=== PATIENT | female | born 1980 | race Caucasian/White ===

== ENCOUNTER 2019-08-25 11:06 | Emergency (ER) | payer SELFPAY ==
[~2019-08-25 11:06] MED LIST: ACET-78 PO; ASPI325T32 PO; ATOR20TA66 PO
--- OUTSIDE RECORDS SUMMARY | 2019-08-25 11:10 | XMS REPORT ---
Author Author [employer] regional production manager [facility] Address [address] [address] Care Team Providers Care Rn Imcu Name Role Phone CHELA BEVERLY Unavailable Unavailable UNKNOWN Unavailable Unavailable LADY ORTIZ Unavailable Allergies No Information Medications No Information Problems No Information Procedures The data below is from unstructured sourcesNo known history of procedures. No Known procedures No Known procedures Immunizations The data below is from unstructured sources No Known Immunizations Results The data below is from unstructured sourcesNo Known Results No Results No Results Vital Signs The data below is from unstructured sources Vital Response Date/Time Temperature (Fahrenheit) 96.8 degree s F (97.6 - 99.5) 08/12/2015 5:16am Temperature (Calculated Celsius) 36. 62772 degrees C (36.4 - 37.5) 08/12/2015 5:16am Temperature Source Tympanic 08/12/2015 5:16am Pulse Rate (adult) 67 bpm (60 - 90) 08/12/2015 5:16am Respiratory Rate 16 bpm (12 - 24) 08/12/2015 5:16am O2 Sat by Pulse Oximetry 97 % (88 - 100) 08/12/2015 5:16am Blood Pressure 96/58 mm Hg 08/12/2015 5:16am Blood Pressure Mean 71 mm Hg 08/12/2015 5:16am Pain Pain Intensity 0 2015 8:00am Height (Feet) 5 feet 8:07pm Height (Inches) 3.00 inches 08/07/2015 8:07pm Height (Calculated Centimeters) 160. 396754 cm 08/07/2015 8:07pm Weight (Pounds) 261 pounds 08/07/2015 8:07pm Weight (Ounces) 0.0 oz 0 08/07/2015 8:07pm Weight (Calculated Grams) 011871.610 gm 08/07/2015 8:07pm Weight (Calculated Kilograms) 118.38 7610 kilograms 08/07/2015 8:07pm Calculated BMI 46.2 07/25 8:07pm Interventions No Information Plan of Treatment The data below is from unstructured sources Discharge Date 08/12/15 9:00am Disposition 07 AGAINST MEDICAL ADVIC E Forms Provided Rehab Team Conference Summary Prescriptions See Medication Section Care Plan and Goals Activity Details Follow Up 3 Months Reason: Activity Details Follow Up 3 Months Reason: Goals No Information Social History No Information Functional Status The data below is from unstructured sources Query Response Date Jose Carlos rded Patient Orientation Normal For Age August 11, 2015 2:00pm Patient Orientation Person Place Time Situation Normal For Age August 13, 2015 12:49am Comprehension Ability Understands Co ncepts August 12, 2015 8:30am Mental Status No Information Encounters Encounter Normalized Encounter Encounter Diagnosis Care Provi flor Organization Date Type 06-06-2017 Patient encounter no information no name no or ganization name Medical Equipment No Information Payers No Information Summary Purpose eClinicalWorks Submission Advance Directives Directive Response Recor ded Date/Time Advance Directives No 10:36pm Health Care Power of Community Marketing Coordinator No 08/07/15 10:36pm Organ Donor Yes 08/07/15 10:36pm Resuscitation Status Full Code 08/07/15 10:36pm Discharge Instructions No hospital discharge instructions. Additional Source Comments This clinical document has been generated using [employer] software that has been certified by the Office of the National Coordinator for Health Information Technology (ONC 15.99.04.3023.Diam.[id number]) and the National Committee for Solar Project Manager (NCQA, as an eMeasure certified technology). FOR RECORDS PERTAINING TO PATIENTS WHO ARE OR HAVE BEEN ENROLLED IN A CHEMICAL D EPENDENCY/SUBSTANCE ABUSE PROGRAM, SOME INFORMATION MAY BE OMITTED. This clinica l summary was aggregated from multiple sources. Caution should be exercised in using it in the provision of clinical care. This summary normalizes information from multiple sources, and as a consequence, information in this document may ma terially change the coding, format and clinical context of patient data. In yue tion, data may be omitted in some cases. CLINICAL DECISIONS SHOULD BE BASED ON T HE PRIMARY CLINICAL RECORDS. [employer] provides no warranty or guara ntee of the accuracy or completeness of information in this document.The followi ng information is based on time limited clinical information UNRECOGNIZED CONTENT PROVIDED BELOW FOR UNRECOGNIZED SECTION MEDICAL (GENERAL) HISTORY Type Description Date Medical History Stroke-July2015/October2015 Surgical History appendix removal Surgical History gallbladder removal Surgical History plates/screws in right ar m Surgical History 2 cesareans Surgical History hysterectomy
--- OUTSIDE RECORDS SUMMARY | 2019-08-25 11:10 | XMS REPORT ---
Author Kaylee Cooley [facility] eClinicalWorks Address Unknown Phone Unavailable Care Team Providers Care Lvn Lpn Name Role Phone CHELA BEVERLY CP Unavailable Allergies, Adverse Reactions, Alerts Substance Reaction Event Type morphine Info Not Available Non Drug Allergy toradol Info Not Available Non Drug Allergy Problems Problem Type Condition Code Onset Dates Condition Statu s Assessment Dental examination Z01.20 Active Medications Medication Code System Code Instructions Start Date End Date Status Dosage Tramadol HCl [facility] 0 not defined Muddy [facility] [address]-65 5-325 MG Orally every 6 hrs Dec 15, 2015 Dec 19, 2015 1 tablet as needed Estradiol [facility] [address]-80 not defi sera Amoxicillin [facility] [address]-90 not de fined Amoxicillin [facility] [address]-13 500 MG Orally 4 times a day Dec 15, 2015 Dec 22, 2015 1 capsule Hydrochlorothiazide [facility] [address]-74 not defined Procedures Procedure Coding System Code Date INTRAORL-PERIAPICAL 1 FILM 37742 CPT-4 D0220 Dec 15, 2015 LTD ORAL EVALUATION - PROBLEM FOCUS CPT-4 D0140 Dec 15, 2015 Vital Signs Date/Time: Dec 15, 2015 Blood Pressure Diastolic 80 mmHg Blood Pressure Systolic 149 mmHg Results No Known Results Summary Purpose eClinicalWorks Submission
--- OUTSIDE RECORDS SUMMARY | 2019-08-25 11:10 | XMS REPORT ---
Author Author Kaylee MEEKS Organization [facility] Address Unknown Care Team Providers Care Chairman Emeritus Name Role Phone RAMON MEEKS Unavailable PROBLEMS Type Condition ICD9-CM Code IYV32-VP Code Onset Dates Condition S tatus SNOMED Code Problem Essential hypertension I10 Active 54600857 Problem History of CVA (cerebrovascular accident) Z86.73 Active 409275778 Problem Cigarette nicotine dependence without complication F17.210 Active 61522350 ALLERGIES No Information ENCOUNTERS Encounter Location Date Diagnosis [place] [address] [address] [facility] [id number] [address] [place] [phone] May, History of CVA (cerebrovascu lar accident) Z86.73 ; Essential hypertension I10 ; Cigarette nicotine dependence without complication F17.210 and BMI 50.0-59.9, adult Z68.43 [facility] [address] [id number] [address] [place] [phone] 13 Sep, 2016 Dental examination Z01.20 [facility] [address] [place] [id number] [address] [place] [phone] Sep, [facility] [address] [place] [phone] Nov, Dental examination Z01.20 [facility] [address] [place] [id number] [address] [place] [phone] Aug, IMMUNIZATIONS No Known Immunizations SOCIAL HISTORY Never Assessed REASON FOR VISIT requesting referral PLAN OF CARE VITAL SIGNS MEDICATIONS No Known Medications RESULTS No Results PROCEDURES No Known procedures INSTRUCTIONS MEDICATIONS ADMINISTERED No Known Medications MEDICAL (GENERAL) HISTORY Type Description Date Medical History Stroke-July2015/October2015 Surgical History appendix removal Surgical History gallbladder removal Surgical History plates/screws in right arm Surgical History 2 cesareans Surgical History hysterectomy
--- OUTSIDE RECORDS SUMMARY | 2019-08-25 11:10 | XMS REPORT ---
Author Author Kaylee ORTIZ Organization [facility] Address [address] [place] [address] Care Team Providers Care Bag Machine Tender Name Role Phone LADY ORTIZ Unavailable PROBLEMS Type Condition ICD9-CM Code [id number] Code Onset Dates Condition S tatus SNOMED Code Problem Essential hypertension I10 Active 89778932 Problem BMI 45.0-49.9, adult Z68.42 Active 373313802 Problem Cigarette nicotine dependence without complication F17.210 Active 51060302 Problem History of CVA (cerebrovascular accident) Z86.73 Active 652076582 ALLERGIES No Information ENCOUNTERS Encounter Location Date Diagnosis [id number] [place] [phone] 27 Jun, 2019 Knee pain, left M25.562 ; Hi story of CVA (cerebrovascular accident) Z86.73 ; Headache R51 ; BMI 45.0-49.9, adult Z68.42 ; Essential hypertension I10 and Cigarette nicotine dependence without complica tion F17.210 [facility] [address] [facility] [id number] [address] [place] [phone] May, History of CVA (cerebrovascu lar accident) Z86.73 ; Essential hypertension I10 ; Cigarette nicotine dependence without complication F17.210 and BMI 50.0-59.9, adult Z68.43 [facility] [address] [id number] [address] [place] [phone] Sep, Dental examination Z01.20 [facility] [address] [facility] [id number] [address] [place] [phone] 03 Sep, 2016 [facility] [address] [facility] [id number] [address] [place] [phone] Nov, Dental examination Z01.20 [facility] [address] [facility] [id number] [address] [place] [address] Aug, IMMUNIZATIONS No Known Immunizations SOCIAL HISTORY Never Assessed REASON FOR VISIT PLAN OF CARE VITAL SIGNS MEDICATIONS No Known Medications RESULTS No Results PROCEDURES No Known procedures INSTRUCTIONS MEDICATIONS ADMINISTERED No Known Medications MEDICAL (GENERAL) HISTORY Type Description Date Medical History Stroke-July2015/October2015 Medical History Seizures Surgical History appendix removal Surgical History gallbladder removal Surgical History plates/screws in right arm Surgical History 2 cesareans Surgical History hysterectomy
--- OUTSIDE RECORDS SUMMARY | 2019-08-25 11:10 | XMS REPORT | Continuity of Care Document ---
Author Organization Unknown Address Unknown Phone Unavailable Allergies Active Description Code Type Severity Reaction Onset Reported/Identified Relationship to Patient Clinical Status Yes ketorolac [id number] Drug Allergy Severe HIVES 08/07/2015 Yes morphine [id number] Drug Allergy Moderate NAUSEA 08/07/2015 Medications There is no data. 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 Results There is no data. Encounters ACCT No. Visit Date/Time Discharge Status Pt. Type Provider Facility Loc./Unit Complaint [id number] 06/06/2017 16:40:00 06/06/2017 23:59:5 9 CLS Outpatient RAMESH GREY LAC [facility] [id number] 08/07/2015 18:50:00 016 09:00:00 DIS Inpatient BEBETO PEÑALOZA MD Via [facility] IRF
--- OUTSIDE RECORDS SUMMARY | 2019-08-25 11:10 | XMS REPORT ---
Author Author Kaylee MEEKS Organization [facility] Address Unknown Care Team Providers Care Sterile Tech Name Role Phone RAMON MEEKS Unavailable PROBLEMS Type Condition ICD9-CM Code [id number] Code Onset Dates Condition S tatus SNOMED Code Problem Essential hypertension I10 Active 52105425 Problem History of CVA (cerebrovascular accident) Z86.73 Active 598278348 Problem Cigarette nicotine dependence without complication F17.210 Active 16134325 ALLERGIES Substance Reaction Event Type Date Status morphine Unknown Non Drug Allergy Sep, Active toradol Unknown Non Drug Allergy Sep, Active ENCOUNTERS Encounter Location Date Diagnosis [place] [address] [address] [place] [id number] [place] [phone] May, History of CVA (cerebrovascu lar accident) Z86.73 ; Essential hypertension I10 ; Cigarette nicotine dependence without complication F17.210 and BMI 50.0-59.9, adult Z68.43 [facility] [address] [facility] [id number] [address] [place] [phone] Sep, Dental examination Z01.20 [facility] [address] [facility] [id number] [address] [place] [phone] Sep, [facility] [address] [place] [id number] [address] [place] [phone] Nov, Dental examination Z01.20 [facility] [address] [place] [id number] [address] [place] [phone] Aug, IMMUNIZATIONS No Known Immunizations SOCIAL HISTORY Never Assessed REASON FOR VISIT pain PLAN OF CARE Activity Details Follow Up prn Reason:referral VITAL SIGNS Blood pressure systolic 128 mmHg 2016-10-06 Blood pressure diastolic 81 mmHg 2016-10-06 MEDICATIONS Medication Instructions Dosage Frequency Start Date End Date Duration S tatus Clindamycin HCl 150 MG Orally every 6 hrs 2 capsules 6h 7 days Active Estradiol Active Hydrochlorothiazide Acti ve Plavix Active Tramadol HCl Active Aspir-81 Active RESULTS No Results PROCEDURES Procedure Date Ordered Result Body Site LTD ORAL EVALUATION - PROBLEM FOCUS October 06, 2016 INTRAORL-PERIAPICAL 1 FILM 16801 October 06, 2016 BITEWING - SINGLE FILM October 06, 2016 INSTRUCTIONS MEDICATIONS ADMINISTERED No Known Medications MEDICAL (GENERAL) HISTORY Type Description Date Medical History Stroke-July2015/October2015 Surgical History appendix removal Surgical History gallbladder removal Surgical History plates/screws in right arm Surgical History 2 cesareans Surgical History hysterectomy
--- OUTSIDE RECORDS SUMMARY | 2019-08-25 11:10 | XMS REPORT ---
Author Author Kaylee ORTIZ Organization [facility] Address [address] [place] [address] Care Team Providers Care Sales And Business Development Manager Name Role Phone LADY ORTIZ Unavailable PROBLEMS Type Condition ICD9-CM Code COI84-IC Code Onset Dates Condition S tatus SNOMED Code Problem Essential hypertension I10 Active 74117704 Problem History of CVA (cerebrovascular accident) Z86.73 Active 577424414 Problem Cigarette nicotine dependence without complication F17.210 Active 85284231 ALLERGIES Substance Reaction Event Type Date Status morphine Unknown Non Drug Allergy May, Active toradol Unknown Non Drug Allergy May, Active ENCOUNTERS Encounter Location Date Diagnosis [place] [id number] [facility] [id number] [address] [place] [phone] May, History of CVA (cerebrovascu lar accident) Z86.73 ; Essential hypertension I10 ; Cigarette nicotine dependence without complication F17.210 and BMI 50.0-59.9, adult Z68.43 [facility] [address] [facility] [id number] [address] [place] [phone] Sep, Dental examination Z01.20 [facility] [address] [place] [id number] [address] [place] [phone] Sep, [facility] [address] [place] [id number] [address] [place] [phone] Nov, Dental examination Z01.20 [facility] [address] [place] [id number] [address] [place] [phone] Aug, IMMUNIZATIONS No Known Immunizations SOCIAL HISTORY Never Assessed REASON FOR VISIT Headache, States she needs all her meds back- Wilman Juarez RN PLAN OF CARE Activity Details Follow Up 3 Months Reason: VITAL SIGNS Height 63 in 2017-06-06 Weight 296 lbs 2017-06-06 Temperature 98.2 degrees Fahrenheit 2017-06-06 Heart Rate 80 bpm 2017-06-06 Respiratory Rate 18 2017-06-06 BMI 52.43 kg/m2 2017-06-06 Blood pressure systolic 132 mmHg 2017-06-06 Blood pressure diastolic 80 mmHg 2017-06-06 MEDICATIONS Medication Instructions Dosage Frequency Start Date End Date Duration S julieta Aspir-81 81 MG Orally Once a day 1 tablet 24h Active Hydrochlorothiazide 12.5 MG Orally Once a day 1 tablet 24h Active RESULTS No Results PROCEDURES No Known procedures INSTRUCTIONS MEDICATIONS ADMINISTERED No Known Medications MEDICAL (GENERAL) HISTORY Type Description Date Medical History Stroke-July2015/October2015 Surgical History appendix removal Surgical History gallbladder removal Surgical History plates/screws in right arm Surgical History 2 cesareans Surgical History hysterectomy
--- NOTE | 2019-08-25 11:30 | ED Neurological Problem ---
General Chief Complaint: Neuro-Stroke Like Symptoms Stated Complaint: THINKS SHES HAVING A STROKE Source: patient, spouse Exam Limitations: clinical condition (difficulty speaking and left sided weakness) History of Present Illness Date Seen by Provider: August 25, 2019 Time Seen by Provider: 11:08 Initial Comments 39-year-old female presenting with her significant other having complaints of new onset left-sided weakness and difficulty speaking. He significant other said that she was slightly better now or ago when he woke up. He stated that he had not seen her since last night when they went to bed. At that time she was normal but has this new onset of weakness and difficulty speaking. She has had a prior stroke but had no residual deficit from it. He had stated that she was having difficulty with her blood pressure in the last several days. She also had a knot on the back of her scalp on the left side but it seems to be gone today. She has not had any fever or chills. She has not been coughing or been sick. Allergies and Home Medications Allergies Coded Allergies: ketorolac (Verified Allergy, Severe, HIVES, 08/07/15) morphine (Verified Adverse Reaction, Intermediate, NAUSEA, 08/07/15) Home Medications Acetaminophen 500 Mg Tablet, 1,000 MG PO Q6H PRN for MILD PAIN Prescribed by: BEBETO PEÑALOZA on 08/12/15 1102 Aspirin 325 Mg Tablet.dr, 325 MG PO DAILY Prescribed by: BEBETO PEÑALOZA on 08/12/15 110 Atorvastatin Calcium 20 Mg Tablet, 40 MG PO HS Prescribed by: BEBETO PEÑALOZA on 08/12/15 1102 Patient Home Medication List Home Medication List Reviewed: Yes Review of Systems Review of Systems Constitutional: No chills, No fever Eyes: Blurred Vision Ears, Nose, Mouth, Throat: no symptoms reported Respiratory: no symptoms reported Cardiovascular: no symptoms reported Gastrointestinal: no symptoms reported Genitourinary: no symptoms reported Musculoskeletal: see HPI, muscle weakness (left-sided weakness) Skin: no symptoms reported Psychiatric/Neurological: Headache, Unable to Move Lower Ext (on the left), Unable to Move Upper Ext (on the left), Weakness (left sided weakness), Other (and speech difficulty) Past Ucxdlog-Rsaxpq-Pqnyov Hx Past Med/Social Hx: Reviewed Nursing Past Med/Soc Hx Immunizations Up To Date Tetanus Booster (TDap): Unknown Date of Influenza Vaccine: Feb 07, 2015 Past Medical History Cardiac: Yes High Cholesterol, Hypertension Neurological: Yes Stroke (prior stroke. No residual deficits per the ) Reproductive Disorders: No Bipolar, Depression Family Medical History Alcoholism 19 FATHER 19 MOTHER Alzheimer's disease 19 FATHER Arthritis 19 FATHER 19 MOTHER Cardiovascular disease 19 MOTHER Physical Exam Vital Signs Vital Signs - First Documented 08/25/19 11:24 Pulse 86 Resp 21 B/P (MAP) 112/50 (70) Pulse Ox 97 Capillary Refill : Height, Weight, BMI Height: 5'3.00" Weight: 261lbs. 0.0oz. 118.954431vu; 46.2 BMI Method: General Appearance: WD/WN, mild distress, obese HEENT: PERRL/EOMI, pharynx normal Neck: non-tender, full range of motion, supple Respiratory: chest non-tender, lungs clear, normal breath sounds, no respiratory distress, no accessory muscle use Cardiovascular: normal peripheral pulses, regular rate, rhythm, no murmur Gastrointestinal: normal bowel sounds, non tender, soft, no pulsatile mass Extremities: non-tender, normal capillary refill Neurologic/Psychiatric: alert, motor weakness (left-sided) Crainal Nerves: abnormal speech (dysarthria and expressive aphasia) Motor/Sensory: weak motor strength LUE, weak motor strength LLE Skin: normal color, warm/dry Stroke Onset of Symptoms Symptoms onset unknown: Yes NIH Stroke Scale Assessment Select: Initial Level of Consciousness: 0=Alert (0), Level of Consciousness- Questions: 1=Answers one question (1), LOC Commands: 0=Performs both tasks (0), Gaze: Normal (0), Visual Conley: 0=No visual loss (0), Facial Movement (Facial Paresis): 1=Minor paralysis (1), Motor Function-Arms Right: 0=No drift (0), Motor Function-Arms Left: 4=No movement (4), Motor Function-Legs Right: 1=Drift (1), Motor Function-Legs Left: 3=No effort/gravity (3), Limb Ataxia: 0=Absent (0), Sensory: 2=Severe to total loss (2), Best Language: 2=Severe aphasia (2), Dysarthria: 2=Severe dysarthria (2), Extinction & Inattention: 2=ProfoundHemiInattention (2), Total: 18 Stroke Thrombolytic Exclusion Age 18 or Over: Yes Acute intenal hemorrhage: No History of CVA: Yes Uncontrolled Coagulation Defec: No Intracranial Hemorrhage: No Severe Hypertension: No GI or Bleed: No Subarachnoid Hemorrhage: No Intracranial Neoplasm/Aneurysm: No Oral Anticoagulants: No Surgery or Trauma: No Puncture of Non-Compressible V: No Recent CPR: No Diabetic Hemorrhagic Retinopat: No Organ Biopsy: No Recent Obstetric Delivery: No Glucose: No Significant Hepatic Dysfunctio: No Bacterial Endocarditis: No Pericarditis: No Improving Symptoms: No Platelets: No Progress/Results/Core Measures Results/Orders Lab Results Laboratory Tests Test 08/25/19 11:15 08/25/19 11:42 08/25/19 12:05 Range/Units White Blood Count 9.9 4.3-11.0 10^3/uL Red Blood Count 4.62 4.35-5.85 10^6/uL Hemoglobin 13.9 11.5-16.0 G/DL Hematocrit 41 35-52 % Mean Corpuscular Volume 90 80-99 FL Mean Corpuscular Hemoglobin 30 25-34 PG Mean Corpuscular Hemoglobin Concent 34 32-36 G/DL Red Cell Distribution Width 13.9 10.0-14.5 % Platelet Count 390 130-400 10^3/uL Mean Platelet Volume 9.8 7.4-10.4 FL Neutrophils (%) (Auto) 62 42-75 % Lymphocytes (%) (Auto) 28 12-44 % Monocytes (%) (Auto) 6 0-12 % Eosinophils (%) (Auto) 3 0-10 % Basophils (%) (Auto) 1 0-10 % Neutrophils # (Auto) 6.1 1.8-7.8 X 10^3 Lymphocytes # (Auto) 2.8 1.0-4.0 X 10^3 Monocytes # (Auto) 0.6 0.0-1.0 X 10^3 Eosinophils # (Auto) 0.3 0.0-0.3 10^3/uL Basophils # (Auto) 0.1 0.0-0.1 10^3/uL Prothrombin Time 11.8 L 12.2-14.7 SEC INR Comment 0.8 0.8-1.4 Activated Partial Thromboplast Time 27 24-35 SEC D-Dimer 1.02 H 0.00-0.49 UG/ML Sodium Level 145 135-145 MMOL/L Potassium Level 4.2 3.6-5.0 MMOL/L Chloride Level 106 98-107 MMOL/L Carbon Dioxide Level 27 21-32 MMOL/L Anion Gap 12 5-14 MMOL/L Blood Urea Nitrogen 12 7-18 MG/DL Creatinine 0.69 0.60-1.30 MG/DL Estimat Glomerular Filtration Rate > 60 BUN/Creatinine Ratio 17 Glucose Level 102 70-105 MG/DL Calcium Level 9.2 8.5-10.1 MG/DL Corrected Calcium 9.2 8.5-10.1 MG/DL Total Bilirubin 0.4 0.1-1.0 MG/DL Aspartate Amino Transf (AST/SGOT) 16 5-34 U/L Alanine Aminotransferase (ALT/SGPT) 18 0-55 U/L Alkaline Phosphatase 104 40-136 U/L Troponin I < 0.30 <0.30 NG/ML Total Protein 6.5 6.4-8.2 GM/DL Albumin 4.0 3.2-4.5 GM/DL Serum Test, Qualitative NEGATIVE NEGATIVE Glucometer 103 70-110 MG/DL Urine Color YELLOW Urine Clarity CLEAR Urine pH 6.0 5-9 Urine Specific Pierpont 1.025 H 1.016-1.022 Urine Protein NEGATIVE NEGATIVE Urine Glucose (UA) NEGATIVE NEGATIVE Urine Ketones TRACE H NEGATIVE Urine Nitrite NEGATIVE NEGATIVE Urine Bilirubin NEGATIVE NEGATIVE Urine Urobilinogen 2.0 < = 1.0 MG/DL Urine Leukocyte Esterase NEGATIVE NEGATIVE Urine RBC (Auto) NEGATIVE NEGATIVE Urine RBC NONE /HPF Urine WBC NONE /HPF Urine Squamous Epithelial Cells 0-2 /HPF Urine Crystals NONE /LPF Urine Bacteria TRACE /HPF Urine Casts NONE /LPF Urine Mucus MODERATE H /LPF Urine Culture Indicated NO My Orders Orders - GERI CARNEY MD Ct Head Wo-R/O Stroke (08/25/19 11:16) Cbc With Automated Diff (08/25/19 11:23) Protime With Inr (08/25/19 11:23) Partial Thromboplastin Time (08/25/19 11:23) Comprehensive Metabolic Panel (08/25/19 11:23) Fibrin Degradation Products (08/25/19 11:23) Troponin I Fs (08/25/19 11:23) Hcg,Qualitative Serum (08/25/19 11:23) Ua Culture If Indicated (08/25/19 11:23) Chest 1 View Ap/Pa Only (08/25/19 11:23) Catheter(Urinary) Insert & Ass 03,15 (08/25/19 11:23) Ekg Tracing (08/25/19 11:23) Nothing By Mouth (08/25/19 Dinner) Accucheck Stat ONCE (08/25/19 11:23) Ed Iv/Invasive Line Start (08/25/19 11:23) Ed Iv/Invasive Line Start (08/25/19 11:23) Vital Signs Stroke Patient Q15M (08/25/19 11:23) O2 (08/25/19 11:23) Intake & Output 06,14,22 (08/25/19 11:23) Monitor-Rhythm Ecg Trace Only (08/25/19 11:23) Dysphagia Screening Tool (08/25/19 11:23) Ct Angio Head/Neck (08/25/19 12:07) Iohexol Injection (Omnipaque 350 Mg/Ml 1 (08/25/19 12:15) Received Contrast (Hold Metformin- Contr (08/25/19 12:15) Sodium Chloride Flush (Catheter Flush Sy (08/25/19 12:15) Ns (Ivpb) (Sodium Chloride 0.9% Ivpb Bag (08/25/19 12:15) Medications Given in ED Current Medications Medications Dose Ordered Sig/Cece Route Start Time Stop Time Status Last Admin Dose Admin Iohexol 75 ml ONCE ONCE IV 08/25/19 12:15 08/25/19 12:16 DC 08/25/19 12:42 75 ML Sodium Chloride 10 ml NEEDED PRN IV 08/25/19 12:15 08/25/19 12:42 10 ML Sodium Chloride 100 ml ONCE ONCE IV 08/25/19 12:15 08/25/19 12:16 DC 08/25/19 12:42 100 ML Vital Signs/I&O 08/25/19 08/25/19 11:24 12:30 Pulse 86 80 Resp 21 19 B/P (MAP) 112/50 (70) 124/69 Pulse Ox 97 96 Progress Progress Note #1: Progress Note Obtain labs and electrocardiogram. Send patient over to CT for CAT scan without contrast to evaluate for stroke. Timing of the onset of symptoms was difficult to pin down. Patient was reporting that this happened during her shower this morning. The states that he got up an hour ago when she was having symptoms but the patient said her symptoms started 20 minutes before coming to the emergency department. The timing is not matching so unable to give specific onset of symptoms time. Progress Note #2: Time: 11:44 Progress Note No acute bleeding or mass seen on CT head. Will contact about speaking with the neurologist and transfer. Labs appear stable without acute significant abnormality on CBC or chemistry. Her cardiac enzymes are normal. Glucose was normal. 1152 call placed to the transfer line and spoke with GEGE Vásquez. He put me in touch with Dr. Obdulia Lewis and she accepted the patient in transfer. She did request CTA to be performed as long as it did not placed transfer the patient. If the timing of the onset of symptoms can be patent down but then the last 4-1/2 hours then she would like to have TPA started as well. After speaking with the patient she was unable to give me a specific time of when she woke up. She did state that she was dropping things and was off balance when she woke up. Based on this I did not feel comfortable saying that her symptoms started in the last 4.5 hours. Will hold off on TPA. The CTA is been performed prior to transfer. The helicopter is to arrive at approximately 12:31 PM. Progress Note #3: Time: 13:01 Progress Note Patient left with helicopter ambulance to transport to [facility]. The CT was performed prior to transfer but results are still pending. Initial ECG Impression Date: August 25, 2019 Initial ECG Impression Time: 11:14 Initial ECG Rate: 84 Initial ECG Rhythm: Normal Sinus Initial ECG Intervals: Normal Initial ECG Comparisson: No Previous ECG Available Comment Normal sinus rhythm with heart rate of 84 bpm. IN interval 169 ms. QT interval 382 ms QTc interval 452 ms. There is no acute ST elevation. There is no prior tracing available for comparison. Diagnostic Imaging Diagonstic Imaging: CT Plain Films/CT/US/NM/MRI: head Comments NAME: ALEXSANDER TOBIN MED REC#: [id number] PT STATUS: REG ER : 1980 PHYSICIAN: GERI CARNEY MD ADMIT DATE: 08/25/19/ER FS Draft Date of Exam:08/25/19 CT HEAD WO-R/O STROKE PROCEDURE: CT head wo r/o stroke. TECHNIQUE: Multiple contiguous axial images were obtained through the brain without the use of intravenous contrast. Auto Exposure Controls were utilized during the CT exam to meet ALARA standards for radiation dose reduction. INDICATION: Stroke, left-sided weakness COMPARISON: None available FINDINGS: No intracranial hemorrhage. No intracranial mass, mass effect, midline shift, herniation, hydrocephalus, or extra-axial fluid collection. No CT evidence of an acute ischemic infarction. The orbits are unremarkable. The paranasal sinuses are clear. The calvarium is intact. IMPRESSION: No acute intracranial abnormality. If there remains clinical concern for underlying recent infarction, then further evaluation with MRI of the brain would be recommended. Dictated on workstation # [id number] Dict: 08/25/19 1134 Trans: 08/25/19 1139 GLENNA [id number] Interpreted by: RAFAEL BANKS MD Electronically signed by: Diagonstic Imaging: Xray Plain Films/CT/US/NM/MRI: chest Comments NAME: ALEXSANDER TOBIN [facility] REC#: [id number] PT STATUS: REG ER : 1980 PHYSICIAN: GERI CARNEY MD ADMIT DATE: 08/25/19/ER FS Draft Date of Exam:08/25/19 CHEST 1 VIEW AP/PA ONLY INDICATION: Left-sided weakness, slurred speech COMPARISON: None available TECHNIQUE: Single radiograph of the chest dated 08/25/2019. FINDINGS: The cardiac silhouette and pulmonary vasculature within normal limits. The lungs are clear. No pleural effusion. No pneumothorax. No acute osseous abnormality. IMPRESSION: No acute cardiopulmonary abnormality. Dictated on workstation # [id number] Dict: 08/25/19 1204 Trans: 08/25/19 1216 GLENNA [id number] Interpreted by: RAFAEL BANKS MD Electronically signed by: Critical Care Note Critical Care Total Time (minutes) 45 Progress 45 minutes of critical care time was spent with the patient. This time was spent in direct care of the patient obtaining history from the patient and family, reviewing medical records, ordering tests and reviewing results, discussion with consultants and family, documentation of the chart. Patient was at risk of having complications or deterioration of her neurologic system. Departure Impression Primary Impression: Stroke determined by clinical assessment Additional Impressions: Left-sided muscle weakness Dysarthria due to acute stroke Aphasia complicating stroke Disposition: 02 XFER SHT-TRM HOSP Condition: Critical Transfer Transfer Reason: Exceeds level of care Time Spoke to Accepting Phy: 11:56 Transfer Progress Notes Called Transfer line at 1152 am and spoke with GEGE Vásquez. He got me in touch with Dr. Obdulia Lewis from Neurology and she accepted the pt in transfer. She did request a CTA to be done if possible as long as it does not delay transport. tPA to be ordered if can confidently pin the time down to the last 4.5 hours. 1204 D/w patient further and she was having trouble with her gait and was dropping things when she woke up this am. She can not tell me what time she woke up. Based on this I can not pin her symptoms down to a start time in the last 4.5 hours with a reliable certainty. Will obtain CTA imaging and cloud those images to while she is in route by helicopter. Transfer Facility: [facility] Method of Transfer: Air Departure-Patient Inst. Referrals: NICOLE FORBES MD (PCP/Family) Primary Care Physician GERI CARNEY MD August 25, 2019 11:30
[2019-08-25 11:38] LABS: BASOPHILS # (AUTO) 0.1 10^3/uL (0.0-0.1); BASOPHILS % (AUTO) 1 % (0-10); EOSINOPHILS # (AUTO) 0.3 10^3/uL (0.0-0.3); EOSINOPHILS % (AUTO) 3 % (0-10); HEMATOCRIT 41 % (35-52); HEMOGLOBIN 13.9 G/DL (11.5-16.0); LYMPHOCYTES # (AUTO) 2.8 X 10^3 (1.0-4.0); LYMPHOCYTES % (AUTO) 28 % (12-44); MEAN CORPUSCULAR HEMOGLOBIN 30 PG (25-34); MEAN CORPUSCULAR HGB CONC 34 G/DL (32-36); MEAN CORPUSCULAR VOLUME 90 FL (80-99); MEAN PLATELET VOLUME 9.8 FL (7.4-10.4); MONOCYTES # (AUTO) 0.6 X 10^3 (0.0-1.0); MONOCYTES % (AUTO) 6 % (0-12); NEUTROPHILS # (AUTO) 6.1 X 10^3 (1.8-7.8); NEUTROPHILS % (AUTO) 62 % (42-75); PLATELET COUNT 390 10^3/uL (130-400); RED CELL DISTRIBUTION WIDTH 13.9 % (10.0-14.5); WHITE BLOOD COUNT 9.9 10^3/uL (4.3-11.0)
--- NOTE | 2019-08-25 11:39 | Diagnostic Imaging Report ---
PROCEDURE: CT head wo r/o stroke. TECHNIQUE: Multiple contiguous axial images were obtained through the brain without the use of intravenous contrast. Auto Exposure Controls were utilized during the CT exam to meet ALARA standards for radiation dose reduction. INDICATION: Stroke, left-sided weakness COMPARISON: None available FINDINGS: No intracranial hemorrhage. No intracranial mass, mass effect, midline shift, herniation, hydrocephalus, or extra-axial fluid collection. No CT evidence of an acute ischemic infarction. The orbits are unremarkable. The paranasal sinuses are clear. The calvarium is intact. IMPRESSION: No acute intracranial abnormality. If there remains clinical concern for underlying recent infarction, then further evaluation with MRI of the brain would be recommended. Dictated by: Dictated on workstation # [id number]
[2019-08-25 11:47] LABS: PROTHROMBIN TIME PATIENT 11.8 SEC (12.2-14.7)
[2019-08-25 11:48] LABS: FIBRIN DEGRADATION PRODUCTS 1.02 UG/ML (0.00-0.49); INR 0.8 (0.8-1.4)
[2019-08-25 11:54] LABS: CARBON DIOXIDE 27 MMOL/L (21-32); CHLORIDE 106 MMOL/L (98-107); POTASSIUM 4.2 MMOL/L (3.6-5.0); SODIUM 145 MMOL/L (135-145)
[2019-08-25 11:55] LABS: ALANINE AMINOTRANSFERASE 18 U/L (0-55); ALKALINE PHOSPHATASE 104 U/L (40-136); BILIRUBIN,TOTAL 0.4 MG/DL (0.1-1.0); BUN/CREATININE RATIO 17; CALCIUM 9.2 MG/DL (8.5-10.1); CREATININE SERUM 0.69 MG/DL (0.60-1.30); GFR ESTIMATED > 60; GLUCOSE 102 MG/DL (70-105); TOTAL PROTEIN 6.5 GM/DL (6.4-8.2)
[2019-08-25] MEDS ORDERED: CATHETER FLUSH 10 ML SYR IV PRN (12:15)
[2019-08-25] MEDS ORDERED: IOHEXOL 350 MG/ML 100 ML (OMNIPAQUE 350) VIAL IV ONE (12:15)
[2019-08-25] MEDS ORDERED: NS 100 ML (IVPB) BAG IV ONE (12:15)
[2019-08-25] MEDS ORDERED: HOLD METFORMIN - RECEIVED CONTRAST 20 ML VIAL IV SCH (12:15)
[2019-08-25 12:16] LABS: BACTERIA,URINE TRACE /HPF; BILIRUBIN,URINE NEGATIVE (NEGATIVE); CLARITY,URINE CLEAR; COLOR,URINE YELLOW; GLUCOSE, URINE (UA) NEGATIVE (NEGATIVE); KETONES,URINE TRACE (NEGATIVE); LEUKOCYTE ESTERASE ,URINE NEGATIVE (NEGATIVE); NITRITE,URINE NEGATIVE (NEGATIVE); PROTEIN,URINE NEGATIVE (NEGATIVE); SQUAMOUS EPITHELIAL CELL,UR 0-2 /HPF
--- NOTE | 2019-08-25 12:17 | Diagnostic Imaging Report ---
INDICATION: Left-sided weakness, slurred speech COMPARISON: None available TECHNIQUE: Single radiograph of the chest dated 08/25/2019. FINDINGS: The cardiac silhouette and pulmonary vasculature within normal limits. The lungs are clear. No pleural effusion. No pneumothorax. No acute osseous abnormality. IMPRESSION: No acute cardiopulmonary abnormality. Dictated by: Dictated on workstation # [id number]
[2019-08-25 12:30] VITALS: BP 124/69
--- NOTE | 2019-08-25 12:47 | NUR ---
[facility] here for transport of patient.
--- NOTE | 2019-08-25 13:09 | Diagnostic Imaging Report ---
PROCEDURE: CT angiography of the head and CT angiography of the neck with and without contrast. TECHNIQUE: Contiguous noncontrast images were obtained from the skull base through the vertex. After intravenous contrast administration, helical CT angiography of the neck was performed. Source data was reformatted into 3D MIP projections. Delayed post contrast acquisition was also obtained. Auto Exposure Controls were utilized during the CT exam to meet ALARA standards for radiation dose reduction. INDICATION: Stroke, left-sided weakness FINDINGS: No midline shift, herniation, hydrocephalus, or extra axial fluid collection. Evaluation for intracranial hemorrhage is limited secondary to the presence of intravenous contrast. No enhancing intracranial mass. The orbits are unremarkable. The paranasal sinuses are clear. The calvarium and extra calvarial soft tissues are unremarkable. No apical pneumothorax. The thyroid gland is unremarkable. The airway is patent. The visualized salivary glands are unremarkable. A three-vessel aortic arch is present. Evaluation of the large arterial structures within the head and neck is severely limited as the contrast bolus is predominantly venous in nature. Additionally, mild motion artifact is present. Within the limits of the examination, no evidence of occlusion, severe stenosis, dissection, aneurysm, or pseudoaneurysm associated with the large arterial structures of the head and neck. The dural venous sinuses are patent. No acute osseous abnormality within the spine with scattered osseous degenerative changes. IMPRESSION: Evaluation of the large arterial structures of the head and neck is significantly limited secondary to contrast bolus timing. No definite occlusion or severe stenosis identified. No acute abnormality within the limits of the exam. Dictated by: Dictated on workstation # [id number]
== END 2019-08-25 13:00 | disposition short-term general hospital (02) ==
LOC: EDUNIT# 11:06 → ER FS 11:07
DX: I63.9 Cerebral infarction, unspecified (principal); G81.90 Hemiplegia, unspecified affecting unspecified side; R47.1 Dysarthria and anarthria; R47.01 Aphasia; I10 Essential (primary) hypertension; E78.00 Pure hypercholesterolemia, unspecified; Z88.5 Allergy status to narcotic agent; Z88.6 Allergy status to analgesic agent; Z79.82 Long term (current) use of aspirin; Z82.49 Family history of ischemic heart disease and other diseases of the circulatory system
CPT/HCPCS: 36415; 51702; 70450; 70496; 70498; 71045; 80053; 81000; 82962; 84484; 84703; 85025; 85379; 85610; 85730; 93005; 93041

== ENCOUNTER 2021-04-20 21:10 | Emergency (ER) | payer SELFPAY ==
[~2021-04-20] VITALS: Ht 160 cm; Wt 106.0 kg
[2021-04-20 21:15] VITALS: BP 126/85
[2021-04-20] MEDS ORDERED: HYDROcodone/APAP 5 MG/325 MG (LORTAB) TAB PO ONE (21:30)
--- NOTE | 2021-04-20 21:55 | Diagnostic Imaging Report ---
Indication: Trauma. Findings: 3 view knee is performed. No fracture or dislocation. Lateral view suggests there is likely at least small suprapatellar joint effusion, no opaque loose body. The alignment is normal. There are arthritic changes involving the medial lateral tibiofemoral compartments. Impression: Mild arthritis and a probable joint effusion but no fracture identified. Dictated by: Dictated on workstation # [id number]
--- NOTE | 2021-04-20 23:16 | ED Lower Extremity ---
General Chief Complaint: Lower Extremity Stated Complaint: FALL,RT KNEE/TOE PAIN Nursing Triage Note: Pt c/o right knee pain after falling onto it on concrete. Pt denies LOC or other injuries. Source: patient Exam Limitations: no limitations History of Present Illness Date Seen by Provider: Apr 20, 2021 Time Seen by Provider: 21:30 Initial Comments Patient is a 41-year-old female with history of arthritis who presents with right knee pain after slipping on the ice and landing on her right knee. Patient reports anterior knee pain with pain with ambulation. Patient is ambulatory and using crutches on 8 arrival. The injury occurred just prior to ED arrival. No medications or therapies taken. Patient has hitting her head loss of consciousness. She is not on anticoagulation therapy. Onset: just prior to arrival Pain/Injury Location: right knee Method of Injury: direct blow Modifying Factors: Improves With Movement, Improves With Other Allergies and Home Medications Allergies Coded Allergies: ketorolac (Verified Allergy, Severe, HIVES, 08/07/15) morphine (Verified Adverse Reaction, Intermediate, NAUSEA, 08/07/15) Patient Home Medication List Home Medication List Reviewed: Yes Acetaminophen (Acetaminophen) 500 Mg Tablet, 1,000 MG PO Q6H PRN for MILD PAIN Prescribed by: BEBETO PEÑALOZA on 08/12/15 1102 Aspirin (Aspirin EC) 325 Mg Tablet.dr, 325 MG PO DAILY Prescribed by: BEBETO PEÑALOZA on 08/12/15 1102 Atorvastatin Calcium (Atorvastatin Calcium) 20 Mg Tablet, 40 MG PO HS Prescribed by: BEBETO PEÑALOZA on 08/12/15 1102 Review of Systems Constitutional: see HPI EENTM: see HPI Respiratory: see HPI Cardiovascular: see HPI Gastrointestinal: see HPI Genitourinary: see HPI Musculoskeletal: see HPI Skin: see HPI Psychiatric/Neurological: See HPI All Other Systems Reviewed Negative Unless Noted: Yes Past Fanrsdi-Nuqlyy-Jophpp Hx Patient Social History Tobacco Use?: Yes Tobacco type used: Cigarettes Smoking Status: Current Everyday Smoker Use of E-Cig and/or Vaping dev: No Substance use?: No Alcohol Use?: Yes Alcohol type: Wine Alcohol Frequency: Several times a month Pt feels they are or have been: No Immunizations Up To Date Tetanus Booster (TDap): Unknown Influenza Vaccine Up-to-Date: No; Not Current First/Initial COVID19 Vaccinat: denies Seasonal Allergies Seasonal Allergies: No Past Medical History Surgeries: Yes (D&C; ) Appendectomy, Gallbladder, Orthopedic Respiratory: No Cardiac: Yes High Cholesterol, Hypertension Neurological: Yes Stroke Reproductive Disorders: No Genitourinary: No Gastrointestinal: No Musculoskeletal: No Endocrine: Yes (gestational diabetes) HEENT: No Cancer: No Psychosocial: Yes Bipolar, Depression Integumentary: No Blood Disorders: No Family Medical History Alcoholism 19 FATHER 19 MOTHER Alzheimer's disease 19 FATHER Arthritis 19 FATHER 19 MOTHER Cardiovascular disease 19 MOTHER Physical Exam Vital Signs Vital Signs - First Documented 04/20/21 21:15 Temp 36.1 Pulse 95 Resp 17 B/P (MAP) 126/85 (99) Pulse Ox 98 O2 Delivery Room Air Capillary Refill : Height, Weight, BMI Height: 5'3.00" Weight: 261lbs. 0.0oz. 118.755815jv; 41.00 BMI Method: General Appearance: WD/WN, no apparent distress HEENT: PERRL/EOMI Knees: right knee soft tissue tenderness, right knee other (No appreciated deformity, bruising, abrasions, lacerations, or ligamentous laxity. Anterior medial tibial tenderness. Range of motion intact.) Progress/Results/Core Measures Results/Orders My Orders Orders - MARY TOBIN DO Knee 3 View Right (04/20/21 21:23) Hydrocodone/Apap 5/325 Tablet (Lortab 5 (04/20/21 21:30) Medications Given in ED Current Medications Medications Dose Ordered Sig/Cece Route Start Time Stop Time Status Last Admin Dose Admin Acetaminophen/ Hydrocodone Bitart 1 ea ONCE ONCE PO 04/20/21 21:30 04/20/21 21:31 DC 04/20/21 21:28 1 EA Vital Signs/I&O 04/20/21 21:15 Temp 36.1 Pulse 95 Resp 17 B/P (MAP) 126/85 (99) Pulse Ox 98 O2 Delivery Room Air Blood Pressure Mean: 99 Departure Communication (Admissions) X-ray Right knee: Radiology report reviewed Pain addressed. The provider was involved in the resuscitation of a critical patient during the patient's stay. The patient did not wish to stay for discharge instructions or speak with provider, but x-ray results were was reviewed with the patient and she was instructed to continue her home arthritis medications and follow-up with her PCP. Impression Primary Impression: Contusion of right knee Disposition: HOME, SELF-CARE Condition: Stable Departure-Patient Inst. Decision time for Depature: 23:16 Referrals: NICOLE FORBES MD (PCP/Family) Primary Care Physician Patient Instructions: Contusion (DC) Add. Discharge Instructions: All discharge instructions reviewed with patient and/or family. Voiced understanding. MARY TOBIN DO Apr 20, 2021 23:16
== END 2021-04-20 23:00 | disposition home or self-care (01) ==
LOC: EDUNIT# 21:10 → ER FS 21:12
DX: S80.01XA Contusion of right knee, initial encounter (principal); I10 Essential (primary) hypertension; E78.00 Pure hypercholesterolemia, unspecified; F17.210 Nicotine dependence, cigarettes, uncomplicated; Z86.73 Personal history of transient ischemic attack (TIA), and cerebral infarction without residual deficits; Z79.82 Long term (current) use of aspirin; Z79.899 Other long term (current) drug therapy; W00.9XXA Unspecified fall due to ice and snow, initial encounter
CPT/HCPCS: 73562